=== PATIENT | male | born 1950 | race Caucasian/White ===

== ENCOUNTER 2016-06-15 15:26 | Emergency (ER) | payer MEDICARE, OTHER ==
[~2016-06-15] VITALS: Ht 182.9 cm; Wt 84.1 kg
[~2016-06-15 15:26] MED LIST: ASPI-973 PO; CREST10T PO; HYDR-4003 PO; METO25TA99 PO; NITR0.4T SL; OMEG-38 PO; PRAS10TA5 PO; UBID30CA12 PO
[2016-06-15 15:31] VITALS: BP 123/76; PULSE 69; RESP 15; O2SAT 96
--- NOTE | 2016-06-15 17:13 | ED.REPORT ---
HPI-Extremity Problem Lower Date of Service Jun 15, 2016 ED Provider: Mitchell Hartmann DO 66 year old male presents to the ER accompanied by his complaining of 10 days of sharp, shooting pain in the right thigh and buttocks that radiates laterally along his thigh into his knee. Pain is exacerbated by standing, ambulation, and subtle movement of the hip and knee. Patient denies swelling of the affected extremity, fever, chills, SOB, and chest pain. He was seen at the [facility] clinic and referred here for DVT rule-out. Symptoms have been treated with 1/2 an OxyContin at 11:00, and again at 13:30 without relief. Nursing Notes Stated Complaint: ULTRASOUND NEEDED Chief Complaint: Extremity Trauma Nursing Notes Reviewed: Yes Allergies: Coded Allergies: No Known Allergies (Verified Allergy, Unknown, 03/05/16) Scheduled Aspirin (Aspirin) 81 Mg Tablet 81 MG PO DAILY Metoprolol Succinate ER (Metoprolol Succinate ER) 25 Mg Tab.er.24h 12.5 MG PO DAILY Treynor-3/Dha/Epa/Fish Oil (Fish Oil 1,000 mg Softgel) 1 Each Capsule 1 EACH PO DAILY Prasugrel HCl (Effient) 10 Mg Tablet 10 MG PO DAILY Rosuvastatin Calcium (Crestor) 10 Mg Tablet 40 MG PO DAILY Ubidecarenone (Coq-10) 30 Mg Capsule 30 MG PO DAILY Scheduled PRN Nitroglycerin SL (Nitrostat) 0.4 Mg Tab.subl 0.4 MG SL Q5MIN PRN PRN chest pain General Time Seen by MD: 17:06 Chief Complaint Thigh injury right Hx Obtained From: Patient, Spouse Arrived By: Walk-in Onset Occurred: More than a week ago... (10 days) Symptom Duration: Since onset Location: : Thigh right Quality: Painful, Sharp Severity: Current: Moderate Severity: Maximum: Moderate Associated with: Denies: Chest pain, Fever, Joint swelling, Neck pain, Swelling Pertinent Negative: Pt denies other symptoms Exacerbated by: Movement Pertinent Negative: Relieved by nothing Similar Sx Previous: No Past Medical History Past Medical History Multivessel CAD Past Surgical History Cardiac stent CABG Appendectomy Knee surgery Arm surgery Family History Noncontributory Smoking History Never Smoker Social History Alcohol Use: "Social" Drug Use: THC Other Social History: Good social support, Local resident Ambulatory Status Independent Review of Systems Constitutional: Denies: Chills, Fever Musculoskeletal: Reports: Extremity pain (Right Thigh/Buttocks), Joint pain ( Right Knee), Denies: Back pain, Extremity swelling, Lumbar pain, Neck pain, Thoracic pain Neurologic: Denies: Headache Complete sys rev & neg: except as marked. Respiratory: Denies: Non-productive cough, Shortness of breath Cardiovascular: Denies: Chest pain Physical Exam Initial Vital Signs Vital Signs (First) Date Time Temp Pulse Resp B/P Pulse Ox O2 Delivery O2 Flow Rate FiO2 06/15/16 15:31 36.1 69 15 123/76 96 Room Air Initial VS: Reviewed General/Constitutional: Well-developed, Well-nourished Head / Eyes: Atraumatic, Normocephalic, PERRL Neck: Supple, Non-tender, Full range of motion Upper Extremities: Vascular intact, Neuro intact, No swelling, No tenderness Skin: Warm, Dry, No cyanosis Neurologic: Alert, Oriented, Nonfocal Lower Extremity / Pelvis / MS: Full range of motion, No swelling, No deformity , Neurologic intact, Vascular intact Tender Right sciatic groove. Full range of motion of the Right hip, knee, and ankle. 2+ PT pulses. Ankle / Foot: Atraumatic, Inspection NL, Full range of motion, No swelling, No erythema, Non-tender, No deformity, Neurologic intact, Vascular intact, No edema Re-Eval/Medical Decision Med Decision/Clinical Course Findings consistent with sciatica. Patient has pain medication at home. Outpatient stretching recommended. Return and follow-up precautions given. Re-Evaluation/Progress #1: Time of Eval: 17:24 Re-Evaluation/Progress Note: Informed patient that ultrasound is ordered. Re-Evaluation/Progress #2: Re-Evaluation/Progress Note: Discussed US results and physical examination findings and plan to discharge. Patient is amenable to the plan. Return precautions given. All other questions addressed. Counseled Regarding: Diagnosis, Need for follow-up, When/why to return to ED Discharge & Departure Impression: Primary Impression: Sciatica Disposition: Home Discharge Condition All VS Reviewed: Yes Condition: Stable Patient Instructions: Sciatica (DC) Additional Instructions: Overall your exam is consistent with sciatica. Use Tylenol and your home pain medication to treat this. Take the wallet out of your back right pocket as this is likely contributing as well. Perform stretches of your gluteal area, rest, ice packs. Follow-up with your regular doctor in the next week for repeat evaluation. Return to ER if you develop back pain associated with a high fever, persistent numbness or weakness on your extremities, or other concerns. Referrals: Lotus Álvarez MD (PCP) Scribe Attestation Portions of this note were transcribed by Shay Gibson. I, Dr. Hartmann, personally performed the history, physical exam and medical decision-making; I reviewed and confirmed the accuracy of the information in the transcribed note. Signed by: Brad Laws, 06/15/2016 and 17:35 copies to: Lotus Álvarez MD, Timothy S DO Jun 15, 2016 17:13 SHAY GIBSON Jun 15, 2016 17:21
[2016-06-15 18:12] VITALS: BP 117/74; PULSE 69; RESP 16; O2SAT 96
--- NOTE | 2016-06-15 18:27 | DRSVH ---
PROCEDURE: US VEINOUS LEG DUPLEX UNILATERAL, RIGHT INDICATIONS: unilateral leg pain TECHNIQUE: Real-time imaging, as well as color and pulse Doppler interrogation, were performed of the lower extr emity deep veins from the inguinal ligament to the popliteal fossa. COMPARISON: None. FINDINGS: The deep veins are normally compressible, and free of intraluminal thrombus. Color and pu lse Doppler demonstrate normal phasic intraluminal flow. There is normal augmentation response to di stal compression maneuver. IMPRESSION: No evidence for deep venous thrombosis is found in the right lower extremity with this d uplex venous Doppler study. Dictated by: Edouard Mahajan M.D. on 06/15/2016 at 18:25 Approved by: Edouard Mahajan M.D. on 06/15/2016 at 18:26
== END 2016-06-15 17:45 | disposition home or self-care (01) ==
LOC: SED 15:26
DX: M54.31 Sciatica, right side (principal); Z79.82 Long term (current) use of aspirin